=== PATIENT | female | born 1960 | race Two or more races ===

== ENCOUNTER 2019-11-16 20:40 | Emergency (ER) | payer OTHER ==
[~2019-11-16] VITALS: Ht 157.5 cm; Wt 56.7 kg
[2019-11-16 22:02] LABS: Basophils # (auto) 0.1 10 ^3/uL (0-0.2); Basophils % (auto) 0.4 % (0.0-2.0); Eosinophils # (auto) 0.4 10 ^3/uL (0-0.8); Eosinophils % (auto) 2.7 % (0.0-7.0); Hematocrit 36.7 % (36.0-46.0); Hemoglobin 12.5 g/dL (12.2-16.2); Lymphocytes # (auto) 2.1 10 ^3/uL (0.4-5.4); Lymphocytes % (auto) 15.8 % (10.0-50.0); Mean Corpuscular Hgb Conc. 34.1 g/dL (32.0-36.0); Mean Corpuscular Volume 91.1 fL (80.0-100.0); Monocytes # (auto) 0.8 10 ^3/uL (0-1.3); Monocytes % (auto) 5.9 % (0.0-12.0); Neutrophils # (auto) 10.1 10 ^3/uL (1.6-8.6); Neutrophils % (auto) 75.2 % (37.0-80.0); Platelet Count (auto) 220 10^3/uL (140-450); Red Blood Cells 4.04 10^6/uL (4.0-5.20); Red Cell Distribution Width 12.8 % (11.8-14.3); White Blood Cell 13.4 10^3/uL (4.4-10.8)
[2019-11-16 22:29] LABS: Chloride 109 mmol/L (98-107); Potassium 3.9 mmol/L (3.5-5.1); Sodium 140 mmol/L (136-145)
[2019-11-16 22:36] LABS: INR 1.02 (0.9-1.15); Partial Thromboplastin Time 23.4 sec (23.0-31.2)
[2019-11-16 22:40] LABS: Alanine Aminotransferase 41 U/L (13-56); Albumin 3.6 g/dL (3.4-5.0); Alkaline Phosphatase 67 U/L (45-117); Anion Gap 5 (5-15); Aspartate Aminotransferase 31 U/L (15-37); BUN/Creatinine Ratio 15.6; Bilirubin, Total 0.2 mg/dL (0.2-1.0); Blood Urea Nitrogen 10 mg/dL (7-18); Carbon Dioxide 26 mmol/L (21-32); GFR African American 123 mL/min; GFR Non-African American 101 mL/min; Glucose 134 mg/dL (74-106); Total Protein 6.2 g/dL (6.4-8.2)
[2019-11-16] MEDS ORDERED: MECLIZINE HCL 25 MG TAB PO ONE (23:30)
[2019-11-17 01:59] LABS: Urine Bacteria FEW /hpf (None Seen); Urine Blood Negative /uL (Negative); Urine Hyaline Cast FEW /lpf (0 - 2); Urine Specific Gravity 1.006 (1.001-1.035); Urine WBC 13 /hpf (0 - 5)
[2019-11-17 02:00] VITALS: BP 151/89
== END 2019-11-17 01:52 | disposition home or self-care (01) ==
LOC: EDBD 20:40 → ER 20:45
DX: S83.8X1A Sprain of other specified parts of right knee, initial encounter (principal); R42 Dizziness and giddiness; R53.1 Weakness; H53.8 Other visual disturbances; R19.7 Diarrhea, unspecified; E11.9 Type 2 diabetes mellitus without complications; X50.9XXA Other and unspecified overexertion or strenuous movements or postures, initial encounter; Y93.89 Activity, other specified; Y92.89 Other specified places as the place of occurrence of the external cause; Y99.8 Other external cause status
CPT/HCPCS: 36415; 70450; 71045; 73562; 73700; 80053; 81001; 83880; 84484; 85025; 85610; 85730; 93005; 99285; J8597